=== PATIENT | male | born 1975 | race Caucasian/White ===

== ENCOUNTER → 2020-02-29 09:32 | Outpatient (CLI) | payer OTHER | END | disposition home or self-care (01) | LOC: D.LAB 09:32 | DX: Z11.59 Encounter for screening for other viral diseases (principal) ==

== ENCOUNTER 2020-09-09 06:29 | Day surgery (SDC) | payer OTHER ==
[~2020-09-09] VITALS: Ht 180.3 cm; Wt 100.0 kg
--- NOTE | ~2020-09-09 | OP ---
PATIENT NAME: ZORAIDA HILL MEDICAL RECORD: [id number] :79 LOCATION:D.[facility] ADMISSION DATE: SURGEON: NAOMY SPRING MD DATE OF OPERATION: 09/09/2020 PREOPERATIVE DIAGNOSIS: Hematochezia. POSTOPERATIVE DIAGNOSES: 1. Hematochezia, likely due to hemorrhoidal bleeding. 2. Gastric polyp. PROCEDURE: 1. Esophagogastroduodenoscopy with antral biopsies to rule out Helicobacter pylori. 2. Gastric hot biopsy forceps polypectomy x1. 3. Total colonoscopy to cecum. SURGEON: Naomy Spring MD OPTOMECHANICAL TECHNICIAN: None. BLOOD LOSS: Minimal. ANESTHESIA: IV sedation. COMPLICATIONS: None. The risks, possible complications, and alternatives of the procedure were explained to the patient. He elected to proceed. DESCRIPTION OF PROCEDURE: The patient was conveyed to the endoscopy suite electively on 09/09/2020. IV sedation was induced by the anesthesia staff. A bite block was inserted. The gastroscope was inserted into the mouth. It was advanced easily into the hypopharynx. Esophagus was easily intubated as were the stomach and duodenum. Upon withdrawal, retroflexed and angulus views were obtained. Antral biopsies were obtained. A gastric hot biopsy forceps polypectomy was performed as well. The endoscope was then withdrawn under direct vision. The patient was turned 180 degrees and placed in the Cao position. Digital rectal examination was performed. A colonoscope was inserted through the anus. It was easily advanced to the cecum. I slowly withdrew the endoscope. I irrigated and aspirated extensively. I dragged the folds. The pullback was greater than a 13-minute pullback. A combination of normal imaging and narrow band imaging were utilized. The retroflexed view was obtained in the rectum. I then unretroflexed the scope and removed it under direct vision. There was no need for the patient to follow up with me in the office unless he develops a complication related to this operative procedure. If needed, I can see the patient as a consultation visit out of the residential on a GI clinic day. TRANSINT:[id number] Voice Confirmation ID: [id number] DOCUMENT ID: [id number] cc: Virginia Arroyo OPERATIVE REPORT [id number] ZORAIDA HILL ROBERT MD CC: DR. YAAKOV MICHEL [phone] DICTATION DATE: 09/17/20 0735 SUPERVISOR TYPE DISK QUALITY CONTROL: 09/17/20 1016 [facility] 09/09/20 [place] [id number] [place] [id number]
[2020-09-09 07:12] LABS: HEMATOCRIT 43.9 % (42.0-54.0); MCH 28.9 pg (26.0-34.0); MCHC 34.2 g/dL (31.0-37.0); MCV 84.6 fL (80.0-100.0); MEAN PLATELET VOLUME 10.8 fL (7.4-10.4); RBC 5.19 10x6/uL (4.20-6.10); RDW 12.6 % (11.5-14.5); WBC 5.5 10x3/uL (4.8-10.8)
[2020-09-09 07:16] LABS: CALC OSMOLALITY 273 mosm/kg (275-300); CARBON DIOXIDE 24.4 mmol/L (21.0-32.0); CHLORIDE - SERUM 103 mmol/L (98-107); CREATININE - SERUM 1.1 mg/dL (0.6-1.3); GLUCOSE 107 mg/dL (74-106); POTASSIUM - SERUM 3.8 mmol/L (3.5-5.1); SODIUM 137 mmol/L (136-145); UREA NITROGEN 12 mg/dL (7-18); eGFR NON AFRICAN AMERICAN 78 mL/min (90-120)
[2020-09-09] MEDS ORDERED: HYDROCHLOROTHIA25 MG PO (07:18)
[2020-09-09 07:24] VITALS: Ht 180.3 cm; Wt 100.0 kg
--- NOTE | 2020-09-09 14:00 | NUR ---
1350 IV DC'ED WITH CATH INTACT, 250ML LTC. DRESSING TO SITE. NO BLEEDING NOTED. [facility] GUARDS @ BEDSIDE. Crescencio LONG R.N.
--- NOTE | 2020-09-09 14:27 | NUR ---
0515 DR. SPRING GAVE VERBAL ORDER TO D/C PT NOW WITHOUT OPERATIVE & POST OP NOTES TO SEND GLENDY TO [facility]. PT GIVEN MED REC, PHOTOS, SHEET LISTING NSAIDS TO AVOID, & [facility] POST ENDOSCOPIC D/C INSTRUCTIONS. PT VOICED UNDERSTANDING. RELEASED FROM OPS VIA WHEELCHAIR ACCOMPANIED BY 2 [facility] GUARDS TO [facility]. Crescencio LONG R.N.
--- NOTE | 2020-09-09 16:21 | HP ---
PATIENT: ZORAIDA HILL MEDICAL RECORD: [id number] ACCOUNT: [id number] LOCATION:[facility] : 79 ADMISSION DATE: 09/09/20 PCP: UNKNOWN HISTORY AND PHYSICAL EXAMINATION HISTORY OF PRESENT ILLNESS: The patient reports hematochezia. The form that I have here states that he has had melena, but he states that he has not had melena. He has undergone upper and lower endoscopy. He has had no dysphagia, no odynophagia. He states that he has frequent bowel movements. The patient has had no abdominal pain. HOME MEDICINES: Hydrochlorothiazide. ALLERGIES: BACITRACIN WELL FLU VACCINE. SOCIAL HISTORY: Former smoker. PAST MEDICAL AND SURGICAL HISTORY: Childhood seizures, hypertension, right ankle surgery and left knee surgery. FAMILY HISTORY: Negative for diabetes or hepatitis. Negative for HIV as well. PHYSICAL EXAMINATION: GENERAL: The patient does not appear acutely ill. He does not appear chronically ill. VITAL SIGNS: Reviewed. EARS: External ears appear normal. EYES: Extraocular movements are intact. NECK: Trachea is midline. CHEST: No intercostal retractions. PULMONARY: Nonlabored. No stridor. IMPRESSION: Hematochezia. PLAN: Upper and lower endoscopy. TRANSINT:[id number] Voice Confirmation ID: [id number] DOCUMENT ID: [id number] cc: [facility] [phone] NAOMY SPRING MD at 1621 CC: DR. YAAKOV OLIVEROS [phone] DICTATION DATE: 09/09/20 1215 PROGRAMMER BUSINESS: 09/09/20 1240 [facility] 09/09/20 [place] [id number] [place] [id number]
== END 2020-09-09 14:22 | disposition home or self-care (01) ==
LOC: D.OPS 06:29
PROVIDERS: Anesthesiology; ATTEND Surgery
DX: K92.1 Melena (principal); K31.7 Polyp of stomach and duodenum; I10 Essential (primary) hypertension